=== PATIENT | female | born 1985 | race Caucasian/White ===

== ENCOUNTER 2017-09-05 21:35 | Emergency (ER) | payer BC, OTHER ==
[2017-09-05 21:45] VITALS: BP 119/58
--- NOTE | 2017-09-05 22:17 | EDM.PDOC ---
ED HPI GENERAL MEDICAL PROBLEM - General Chief Complaint: Respiratory Problem Stated Complaint: SOB COUGH CONGESTION Time Seen by Provider: 09/05/17 22:00 Source of Information: Reports: Patient History Limitations: Reports: No Limitations - History of Present Illness INITIAL COMMENTS - FREE TEXT/NARRATIVE: 32-year-old female presents for evaluation treatment of cough, lightheadedness and shortness of breath. Patient reports that her symptoms started today. She reports chest discomfort and states she feels like she is having a hard time breathing. She reports it hurts to cough or take a deep breath. She states that she has a nonproductive cough. States she has felt warm and had chills but no known fever. She reports associated symptoms of headaches, lightheadedness and nausea. No syncope or vomiting. Patient reports that she has not slept much today and feels this could be part of her symptoms. She reports that in April she had pneumonia and her symptoms currently feels similar. Patient denies any recent travel. She denies any pain in her legs. Patient reports that she does have a Mirena IUD in place. Onset: Today Location: Reports: Chest Headache Pain Score (Numeric/FACES): 5 - Related Data Allergies Allergy/AdvReac Type Severity Reaction Status Date / Time No Known Allergies Allergy Verified 09/05/17 21:45 Home Meds: Home Meds Levothyroxine [Synthroid] 100 mcg PO DAILY 12/23/14 [History] Sertraline [Zoloft] 100 mg PO DAILY 11/18/16 [History] Levonorgestrel [Mirena] 1 each IY ASDIRECTED 09/05/17 [History] Past Medical History HEENT History: Reports: Impaired Vision Other HEENT History: wears corrective lenses Genitourinary History: Reports: Renal Calculus, UTI, Recurrent Other OB/BYN History: 3 miscarriages; cysts Psychiatric History: Reports: Anxiety, Depression Endocrine/Metabolic History: Reports: Hypothyroidism - Past Surgical History HEENT Surgical History: Reports: Eye Surgery GI Surgical History: Reports: Cholecystectomy Female Surgical History: Reports: D&C Musculoskeletal Surgical History: Reports: Ganglion Cyst Social & Family History - Tobacco Use Smoking Status *Q: Never Smoker Second Hand Smoke Exposure: No - Caffeine Use Caffeine Use: Reports: Soda - Alcohol Use Days Per Week of Alcohol Use: 0 - Recreational Drug Use Recreational Drug Use: No - Living Situation & Occupation Living situation: Reports: , with Spouse Occupation: Employed ED ROS GENERAL - Review of Systems Review Of Systems: See Below Constitutional: Reports: Chills, Fatigue. Denies: Fever HEENT: Reports: Throat Pain. Denies: Ear Pain Respiratory: Reports: Shortness of Breath, Pleuritic Chest Pain, Cough. Denies : Sputum, Hemoptysis Cardiovascular: Reports: Chest Pain, Lightheadedness GI/Abdominal: Reports: Nausea. Denies: Vomiting Musculoskeletal: Denies: Leg Pain Neurological: Reports: Headache. Denies: Syncope ED EXAM, GENERAL - Physical Exam Exam: See Below Exam Limited By: No Limitations General Appearance: Alert, WD/WN, No Apparent Distress Eye Exam: Bilateral Eye: Normal Inspection Ears: Normal External Exam, Normal Canal, Hearing Grossly Normal, Normal TMs Ear Exam: Bilateral Ear: TM normal Nose: Normal Inspection Throat/Mouth: Normal Inspection, Normal Lips, Normal Voice, No Airway Compromise Respiratory/Chest: No Respiratory Distress, Lungs Clear, Normal Breath Sounds Cardiovascular: Normal Peripheral Pulses, Regular Rate, Rhythm, No Murmur Neurological: Alert, Oriented, Normal Cognition Psychiatric: Normal Affect, Normal Mood Skin Exam: Warm, Dry, Normal Color Course - Vital Signs Last Recorded V/S: Last Vital Signs Temp 36.2 C 09/05/17 21:42 Pulse 68 09/05/17 21:42 Resp 18 09/05/17 21:42 BP 119/58 L 09/05/17 21:42 Pulse Ox 96 09/05/17 21:42 - Orders/Labs/Meds Orders: Active Orders 24 hr Category Date Time Status Chest 2V [CR] Stat Exams 09/05/17 22:08 Ordered Labs: Laboratory Tests 09/05/17 09/05/17 09/05/17 Range/Units 22:20 22:20 22:20 WBC 10.66 H (3.98-10.04) K/mm3 RBC 4.41 (3.98-5.22) M/mm3 Hgb 13.9 (11.2-15.7) gm/L Hct 39.7 (34.1-44.9) % MCV 90.0 (79.4-94.8) fl MCH 31.5 (25.6-32.2) pg MCHC 35.0 (32.2-35.5) g/dl RDW Std Deviation 40.9 (36.4-46.3) fL Plt Count 174 L (182-369) K/mm3 MPV 11.5 (9.4-12.3) fl Neut % (Auto) 51.1 (34.0-71.1) % Lymph % (Auto) 36.2 (19.3-51.7) % [place] % (Auto) 9.8 (4.7-12.5) % Eos % (Auto) 1.9 (0.7-5.8) Baso % (Auto) 0.7 (0.1-1.2) % Neut # (Auto) 5.46 (1.56-6.13) K/mm3 Lymph # (Auto) 3.86 H (1.18-3.74) K/mm3 [place] # (Auto) 1.04 H (0.24-0.36) K/mm3 Eos # (Auto) 0.20 (0.04-0.36) K/mm3 Baso # (Auto) 0.07 (0.01-0.08) K/mm3 D-Dimer, Quantitative 0.29 (0.19-0.59) mg/L Sodium 142 (136-145) mEq/L Potassium 3.2 L (3.5-5.1) mEq/L Chloride 106 (98-107) mEq/L Carbon Dioxide 26 (21-32) mEq/L Anion Gap 13.2 (5-15) BUN 11 (7-18) mg/dL Creatinine 0.9 (0.55-1.02) mg/dL Est Cr Clr Drug Dosing 71.63 mL/min Estimated GFR (MDRD) > 60 (>60) mL/min BUN/Creatinine Ratio 12.2 L (14-18) Glucose 122 H (74-106) mg/dL Calcium 9.3 (8.5-10.1) mg/dL C-Reactive Protein < 0.2 (<1.0) mg/dL - Radiology Interpretation Free Text/Narrative:: chest xray shows no acute intrathoracic process. Reviewed by myself and Dr. Villalobos. - Re-Assessments/Exams Free Text/Narrative Re-Assessment/Exam: 09/05/17 22:59 Influenza returned negative. I reviewed the chest x-ray and labs at the patient. Likely a viral infection coupled with not eating or sleeping today causing lightheadedness and dizziness. Encouraged to rest and drink plenty of fluids. Discharge instructions as documented. Departure - Departure Time of Disposition: 22:59 Disposition: Home, Self-Care 01 Condition: Good Clinical Impression: Viral upper respiratory illness - Discharge Information Referrals: PCP,None [Primary Care Provider] - Ada Mueller PA-C [Ordering Only Provider] - Forms: ED Department Discharge Additional Instructions: Rest. make sure you drink plenty of fluids. [id number] Tylenol or Motrin as needed for headache and symptom relief. If your symptoms are not much better within 2 weeks follow-up with your primary care provider. Recommend increasing your potassium by eating food high in potassium or starting a multivitamin with potassium. Please return to the ER if your symptoms change or worsen. - My Orders Last 24 Hours: My Active Orders 09/05/17 22:08 Chest 2V [CR] Stat - Assessment/Plan Last 24 Hours: My Active Orders 09/05/17 22:08 Chest 2V [CR] Stat
--- NOTE | 2017-09-06 07:10 | CR ---
Chest: Two views of the chest were obtained. Comparison: No previous chest x-ray. Heart size and mediastinum are within normal limits. Lungs are clear. Surgical clips are noted within the upper abdomen. Bony structures are within normal limits for the patient's age. Impression: 1. Incidental findings. Nothing acute is seen on two-view chest x-ray. Diagnostic code #1
== END 2017-09-05 23:05 | disposition home or self-care (01) ==
LOC: JD.ED 21:35
DX: J06.9 Acute upper respiratory infection, unspecified (principal); F32.9 Major depressive disorder, single episode, unspecified; E03.9 Hypothyroidism, unspecified; Z79.899 Other long term (current) drug therapy
CPT/HCPCS: 36415; 71020; 71020-26; 80048; 85025; 85379; 86140; 87804; 99283; 99284

== ENCOUNTER 2017-10-11 23:25 | Emergency (ER) | payer OTHER ==
[2017-10-11 23:43] VITALS: BP 116/67
[2017-10-11] MEDS ORDERED: Ondansetron 4 MG/2 ML SDV IVPUSH ONE (23:54)
[2017-10-11] MEDS ORDERED: Sodium Chloride 0.9% 1,000 ML IV STA (23:54)
[2017-10-11] MEDS ORDERED: Sodium Chloride 0.9% 10 ML Syringe FLUSH PRN (23:54)
--- NOTE | 2017-10-12 00:29 | EDM.PDOC ---
ED HPI GENERAL MEDICAL PROBLEM - General Chief Complaint: General Stated Complaint: DIZZY/NAUSEATED Time Seen by Provider: 10/11/17 23:48 Source of Information: Reports: Patient History Limitations: Reports: No Limitations - History of Present Illness INITIAL COMMENTS - FREE TEXT/NARRATIVE: The patient presents with generalized malaise, nausea and not feeling well. This started yesterday. She may have had a fever and she has chills. She has no ear pain, sorethroat, cough, chest pain, shortness of breath or abdominal pain. She does have nausea but no vomiting. She has no dysuria. She did have some mild left flank pain. She has a history of kidney stones. She has a history of hypothyroidism. Onset: Gradual Duration: Day(s): (Yesterday) Severity: Moderate Improves with: Reports: None Worsens with: Reports: None Associated Symptoms: Reports: Fever/Chills, Nausea/Vomiting. Denies: Chest Pain , Cough, Headaches, Shortness of Breath Headache Pain Score (Numeric/FACES): 5 - Related Data Allergies Allergy/AdvReac Type Severity Reaction Status Date / Time No Known Allergies Allergy Verified 09/05/17 21:45 Home Meds: Home Meds Levothyroxine [Synthroid] 100 mcg PO DAILY 12/23/14 [History] Sertraline [Zoloft] 100 mg PO DAILY 11/18/16 [History] Levonorgestrel [Mirena] 1 each IY ASDIRECTED 09/05/17 [History] Past Medical History HEENT History: Reports: Impaired Vision Other HEENT History: wears corrective lenses Genitourinary History: Reports: Renal Calculus, UTI, Recurrent Other OB/BYN History: 3 miscarriages; cysts Psychiatric History: Reports: Anxiety, Depression Endocrine/Metabolic History: Reports: Hypothyroidism - Past Surgical History HEENT Surgical History: Reports: Eye Surgery GI Surgical History: Reports: Cholecystectomy Female Surgical History: Reports: D&C Musculoskeletal Surgical History: Reports: Ganglion Cyst Social & Family History - Family History Family Medical History: Noncontributory - Tobacco Use Smoking Status *Q: Never Smoker Second Hand Smoke Exposure: No - Caffeine Use Caffeine Use: Reports: Soda - Alcohol Use Days Per Week of Alcohol Use: 0 - Recreational Drug Use Recreational Drug Use: No - Living Situation & Occupation Living situation: Reports: , with Spouse Occupation: Employed ED ROS GENERAL - Review of Systems Review Of Systems: See Below Constitutional: Reports: Fever, Chills, Malaise, Weakness, Fatigue HEENT: Reports: No Symptoms Respiratory: Reports: No Symptoms Cardiovascular: Reports: No Symptoms Endocrine: Reports: No Symptoms GI/Abdominal: Reports: Nausea. Denies: Abdominal Pain, Diarrhea, Vomiting : Reports: No Symptoms Musculoskeletal: Reports: No Symptoms ED EXAM, GENERAL - Physical Exam Exam: See Below Exam Limited By: No Limitations General Appearance: Alert, No Apparent Distress Ears: Normal External Exam, Normal Canal, Normal TMs Nose: Normal Inspection Throat/Mouth: Normal Inspection Head: Atraumatic, Normocephalic Neck: Normal Inspection Respiratory/Chest: No Respiratory Distress, Lungs Clear, Normal Breath Sounds Cardiovascular: Regular Rate, Rhythm, No Edema, No Murmur GI/Abdominal: Soft, Non-Tender, No Organomegaly, No Mass Back Exam: Normal Inspection Extremities: Normal Inspection Course - Vital Signs Last Recorded V/S: Last Vital Signs Temp 98.2 F 10/11/17 23:40 Pulse 64 10/11/17 23:40 Resp 16 10/11/17 23:40 BP 116/67 10/11/17 23:40 Pulse Ox 96 10/11/17 23:40 - Orders/Labs/Meds Orders: Active Orders 24 hr Category Date Time Status Peripheral IV Care [RC] . DIRECTED Care 10/11/17 23:55 Active Sodium Chloride 0.9% [Saline Flush] Med 10/11/17 23:54 Active 10 ml FLUSH ASDIRECTED PRN ED Antiemetic Medication Reflex [OM.PC] Stat Oth 10/11/17 23:55 Ordered Peripheral IV Insertion Adult [OM.PC] Stat Oth 10/11/17 23:54 Ordered Medication Orders Sodium Chloride (Saline Flush) 10 ml FLUSH ASDIRECTED PRN PRN Reason: Keep Vein Open Last Admin: 10/12/17 00:26 Dose: 10 ml Labs: Laboratory Tests 10/12/17 10/12/17 10/12/17 Range/Units 00:18 00:20 00:20 WBC 12.89 H (3.98-10.04) K/mm3 RBC 4.74 (3.98-5.22) M/mm3 Hgb 14.7 (11.2-15.7) gm/L Hct 43.3 (34.1-44.9) % MCV 91.4 (79.4-94.8) fl MCH 31.0 (25.6-32.2) pg MCHC 33.9 (32.2-35.5) g/dl RDW Std Deviation 42.2 (36.4-46.3) fL Plt Count 156 L (182-369) K/mm3 MPV 11.5 (9.4-12.3) fl Neut % (Auto) 55.1 (34.0-71.1) % Lymph % (Auto) 34.1 (19.3-51.7) % [place] % (Auto) 8.3 (4.7-12.5) % Eos % (Auto) 1.7 (0.7-5.8) Baso % (Auto) 0.6 (0.1-1.2) % Neut # (Auto) 7.10 H (1.56-6.13) K/mm3 Lymph # (Auto) 4.39 H (1.18-3.74) K/mm3 [place] # (Auto) 1.07 H (0.24-0.36) K/mm3 Eos # (Auto) 0.22 (0.04-0.36) K/mm3 Baso # (Auto) 0.08 (0.01-0.08) K/mm3 Sodium 143 (136-145) mEq/L Potassium 3.3 L (3.5-5.1) mEq/L Chloride 105 (98-107) mEq/L Carbon Dioxide 28 (21-32) mEq/L Anion Gap 13.3 (5-15) BUN 17 (7-18) mg/dL Creatinine 0.8 (0.55-1.02) mg/dL Est Cr Clr Drug Dosing 80.59 mL/min Estimated GFR (MDRD) > 60 (>60) mL/min BUN/Creatinine Ratio 21.3 H (14-18) Glucose 124 H (74-106) mg/dL Calcium 8.7 (8.5-10.1) mg/dL Total Bilirubin 0.5 (0.2-1.0) mg/dL AST 12 L (15-37) U/L ALT 25 (14-59) U/L Alkaline Phosphatase 94 (46-116) U/L Total Protein 7.3 (6.4-8.2) g/dl Albumin 3.9 (3.4-5.0) g/dl Globulin 3.4 gm/dL Albumin/Globulin Ratio 1.2 (1-2) Lipase 330 (73-393) U/L TSH 3rd Generation 1.261 (0.358-3.74) uIU/mL HCG, Qual (NEGATIVE) Urine Color Yellow (Yellow) Urine Appearance Clear (Clear) Urine pH 7.0 (5.0-8.0) Ur Specific [place] 1.020 (1.005-1.030) Urine Protein Negative (Negative) Urine Glucose (UA) Negative (Negative) Urine Ketones Negative (Negative) Urine Occult Blood Negative (Negative) Urine Nitrite Negative (Negative) Urine Bilirubin Negative (Negative) Urine Urobilinogen 0.2 (0.2-1.0) Ur Leukocyte Esterase Negative (Negative) Urine RBC Not seen (0-5) /hpf Urine WBC 0-5 (0-5) /hpf Ur Epithelial Cells 0-5 (0-5) /hpf Urine Bacteria Not seen (FEW) /hpf Urine Mucus Not seen (FEW) /hpf 10/12/17 Range/Units 00:20 WBC (3.98-10.04) K/mm3 RBC (3.98-5.22) M/mm3 Hgb (11.2-15.7) gm/L Hct (34.1-44.9) % MCV (79.4-94.8) fl MCH (25.6-32.2) pg MCHC (32.2-35.5) g/dl RDW Std Deviation (36.4-46.3) fL Plt Count (182-369) K/mm3 MPV (9.4-12.3) fl Neut % (Auto) (34.0-71.1) % Lymph % (Auto) (19.3-51.7) % [place] % (Auto) (4.7-12.5) % Eos % (Auto) (0.7-5.8) Baso % (Auto) (0.1-1.2) % Neut # (Auto) (1.56-6.13) K/mm3 Lymph # (Auto) (1.18-3.74) K/mm3 [place] # (Auto) (0.24-0.36) K/mm3 Eos # (Auto) (0.04-0.36) K/mm3 Baso # (Auto) (0.01-0.08) K/mm3 Sodium (136-145) mEq/L Potassium (3.5-5.1) mEq/L Chloride (98-107) mEq/L Carbon Dioxide (21-32) mEq/L Anion Gap (5-15) BUN (7-18) mg/dL Creatinine (0.55-1.02) mg/dL Est Cr Clr Drug Dosing mL/min Estimated GFR (MDRD) (>60) mL/min BUN/Creatinine Ratio (14-18) Glucose (74-106) mg/dL Calcium (8.5-10.1) mg/dL Total Bilirubin (0.2-1.0) mg/dL AST (15-37) U/L ALT (14-59) U/L Alkaline Phosphatase (46-116) U/L Total Protein (6.4-8.2) g/dl Albumin (3.4-5.0) g/dl Globulin gm/dL Albumin/Globulin Ratio (1-2) Lipase (73-393) U/L TSH 3rd Generation (0.358-3.74) uIU/mL HCG, Qual Negative (NEGATIVE) Urine Color (Yellow) Urine Appearance (Clear) Urine pH (5.0-8.0) Ur Specific [place] (1.005-1.030) Urine Protein (Negative) Urine Glucose (UA) (Negative) Urine Ketones (Negative) Urine Occult Blood (Negative) Urine Nitrite (Negative) Urine Bilirubin (Negative) Urine Urobilinogen (0.2-1.0) Ur Leukocyte Esterase (Negative) Urine RBC (0-5) /hpf Urine WBC (0-5) /hpf Ur Epithelial Cells (0-5) /hpf Urine Bacteria (FEW) /hpf Urine Mucus (FEW) /hpf Meds: Medications Generic Name Dose Route Start Last Admin Trade Name Freq PRN Reason Stop Dose Admin Sodium Chloride 10 ml 10/11/17 23:54 10/12/17 00:26 Saline Flush FLUSH 10 ml ASDIRECTED PRN Administration Keep Vein Open Discontinued Medications Generic Name Dose Route Start Last Admin Trade Name Freq PRN Reason Stop Dose Admin Acetaminophen 975 mg 10/12/17 01:43 10/12/17 01:47 Tylenol PO 10/12/17 01:44 975 mg NOW ONE Administration Sodium Chloride 1,000 mls @ 1,000 mls/hr 10/11/17 23:54 10/12/17 00:23 Normal Saline IV 10/12/17 00:53 1,000 mls/hr .BOLUS STA Administration Ondansetron HCl 4 mg 10/11/17 23:54 10/12/17 00:23 Zofran IVPUSH 10/11/17 23:55 4 mg ONETIME ONE Administration - Re-Assessments/Exams Free Text/Narrative Re-Assessment/Exam: 10/12/17 00:28 I ordered an IV NS 1L bolus, zofran 4mg IV, labs, and UA. 10/12/17 01:55 Her WBC was elevated at 12.89. Her K was a little low at 3.3. Her glucose was elevated at 124. Her HCG was negative. Her UA shows no UTI. She had a headache so I gave her some tylenol 975mg PO. She has a viral URI. I will discharge her home. Departure - Departure Time of Disposition: 02:00 Disposition: Home, Self-Care 01 Condition: Good Clinical Impression: Viral syndrome - Discharge Information Referrals: Lolita Hayden MD [Primary Care Provider] - Forms: ED Department Discharge, ED Return to Work/School Form Additional Instructions: Drink plenty of water. Take motrin or tylenol for any pain or fever. Get plenty of rest. Please return if you are worse. - My Orders Last 24 Hours: My Active Orders 10/11/17 23:54 Sodium Chloride 0.9% [Saline Flush] 10 ml FLUSH ASDIRECTED PRN Peripheral IV Insertion Adult [OM.PC] Stat 10/11/17 23:55 Peripheral IV Care [RC] . DIRECTED ED Antiemetic Medication Reflex [OM.PC] Stat - Assessment/Plan Last 24 Hours: My Active Orders 10/11/17 23:54 Sodium Chloride 0.9% [Saline Flush] 10 ml FLUSH ASDIRECTED PRN Peripheral IV Insertion Adult [OM.PC] Stat 10/11/17 23:55 Peripheral IV Care [RC] . DIRECTED ED Antiemetic Medication Reflex [OM.PC] Stat
[2017-10-12] MEDS ORDERED: Acetaminophen 325 MG Tab PO ONE (01:43)
== END 2017-10-12 02:07 | disposition home or self-care (01) ==
LOC: JD.ED 23:25
DX: B34.9 Viral infection, unspecified (principal); F32.9 Major depressive disorder, single episode, unspecified; E03.9 Hypothyroidism, unspecified; Z79.899 Other long term (current) drug therapy
CPT/HCPCS: 36415; 80053; 81001; 83690; 84443; 84703; 85025; 87804; 96361; 96374; 99284; A9270; J2405; J7040; J7050; 99282

== ENCOUNTER 2017-11-01 17:18 | Emergency (ER) | payer OTHER ==
[2017-11-01] MEDS ORDERED: Ondansetron 4 MG/2 ML SDV IVPUSH ONE (18:42)
[2017-11-01] MEDS ORDERED: Sodium Chloride 0.9% 10 ML Syringe FLUSH PRN (18:42)
[2017-11-01] MEDS ORDERED: Sodium Chloride 0.9% 1,000 ML IV ONE (18:42)
[2017-11-01] MEDS ORDERED: HYDROmorphone 0.5 MG/0.5 ML Syringe IVPUSH ONE (18:43)
--- NOTE | 2017-11-01 18:46 | EDM.PDOC ---
ED HPI GENERAL MEDICAL PROBLEM - General Chief Complaint: Headache Stated Complaint: HEADACHE,DIZZINESS,BODY WEAKNESS Time Seen by Provider: 11/01/17 18:36 Source of Information: Reports: Patient History Limitations: Reports: No Limitations - History of Present Illness INITIAL COMMENTS - FREE TEXT/NARRATIVE: Patient is a 32-year-old female who presents to the ED complaining of headache, body aches, hot and cold flashes, cough nonproductive, nausea, generalized weakness, body aches, and mild dizziness that all started last night. She's also has some intermittent shortness of breath with sore throat. No fevers noted with admission to the ED was 100.4. Their as been no recent sick exposures. She denies receiving the flu vaccination. Denies no diarrhea, vomiting, or rash present. She has a history of hypothyroidism and denies being . Generalized Pain Score (Numeric/FACES): 8 - Related Data Allergies Allergy/AdvReac Type Severity Reaction Status Date / Time No Known Allergies Allergy Verified 11/01/17 17:42 Home Meds: Home Meds Levothyroxine [Synthroid] 100 mcg PO DAILY 12/23/14 [History] Levonorgestrel [Mirena] 1 each IY ASDIRECTED 09/05/17 [History] Ondansetron [Zofran ODT] 4 mg PO Q6H PRN #20 tab.dis 11/01/17 [Rx] Past Medical History HEENT History: Reports: Impaired Vision Other HEENT History: wears corrective lenses Genitourinary History: Reports: Renal Calculus, UTI, Recurrent Other OB/BYN History: 3 miscarriages; cysts Psychiatric History: Reports: Anxiety, Depression Endocrine/Metabolic History: Reports: Hypothyroidism - Past Surgical History HEENT Surgical History: Reports: Eye Surgery GI Surgical History: Reports: Cholecystectomy Female Surgical History: Reports: D&C Musculoskeletal Surgical History: Reports: Ganglion Cyst Social & Family History - Family History Family Medical History: Noncontributory - Tobacco Use Smoking Status *Q: Never Smoker Second Hand Smoke Exposure: No - Caffeine Use Caffeine Use: Reports: None - Alcohol Use Days Per Week of Alcohol Use: 0 - Recreational Drug Use Recreational Drug Use: No - Living Situation & Occupation Living situation: Reports: , with Spouse Occupation: Employed ED ROS GENERAL - Review of Systems Review Of Systems: ROS reveals no pertinent complaints other than HPI. ED EXAM, GENERAL - Physical Exam Exam: See Below Exam Limited By: No Limitations General Appearance: Alert, WD/WN, Mild Distress Ears: Normal External Exam, Normal Canal, Hearing Grossly Normal, Normal TMs Nose: Nasal Swelling Throat/Mouth: Normal Inspection, No Airway Compromise, Other Neck: Normal Inspection (Forcefulness with redness noted to the posterior pharynx no exudates noted.), Supple, Non-Tender, Full Range of Motion Respiratory/Chest: No Respiratory Distress, Lungs Clear, Normal Breath Sounds, No Accessory Muscle Use, Chest Non-Tender Cardiovascular: Normal Peripheral Pulses, Regular Rate, Rhythm GI/Abdominal: Normal Bowel Sounds, Soft, Non-Tender, No Organomegaly, No Distention Back Exam: Normal Inspection, Full Range of Motion. No: CVA Tenderness (L), CVA Tenderness (R) Neurological: Alert, Oriented, CN II-XII Intact, Normal Cognition, No Motor/ Sensory Deficits Psychiatric: Normal Affect, Normal Mood Skin Exam: Warm, Dry, Intact, Normal Color Course - Vital Signs Last Recorded V/S: Last Vital Signs Temp 99.8 F 11/01/17 19:10 Pulse 101 H 11/01/17 19:10 Resp 18 11/01/17 19:10 BP 113/68 11/01/17 19:10 Pulse Ox 87 L 11/01/17 19:18 Orthostatic Blood Pressure [ 112/74 Standing] Orthostatic Blood Pressure [ 119/75 Sitting] Orthostatic Blood Pressure [ 109/65 Supine] - Orders/Labs/Meds Orders: Active Orders 24 hr Category Date Time Status Peripheral IV Care [RC] . DIRECTED Care 11/01/17 18:42 Active Chest 2V [CR] Stat Exams 11/01/17 18:42 Taken CULTURE STREP A CONFIRMATION [RM] Stat Lab 11/01/17 19:00 Results STREP SCRN A RAPID W CULT CONF [RM] Stat Lab 11/01/17 19:00 Results UA W/MICROSCOPIC [URIN] Stat Lab 11/01/17 19:58 Results Peripheral IV Insertion Adult [OM.PC] Stat Oth 11/01/17 18:42 Ordered Labs: Laboratory Tests 11/01/17 11/01/17 11/01/17 Range/Units 19:00 19:00 19:58 WBC 10.95 H (3.98-10.04) K/mm3 RBC 4.67 (3.98-5.22) M/mm3 Hgb 14.7 (11.2-15.7) gm/L Hct 43.2 (34.1-44.9) % MCV 92.5 (79.4-94.8) fl MCH 31.5 (25.6-32.2) pg MCHC 34.0 (32.2-35.5) g/dl RDW Std Deviation 43.6 (36.4-46.3) fL Plt Count 134 L (182-369) K/mm3 MPV 11.6 (9.4-12.3) fl Neut % (Auto) 79.7 H (34.0-71.1) % Lymph % (Auto) 7.1 L (19.3-51.7) % [place] % (Auto) 12.4 (4.7-12.5) % Eos % (Auto) 0.1 L (0.7-5.8) Baso % (Auto) 0.4 (0.1-1.2) % Neut # (Auto) 8.73 H (1.56-6.13) K/mm3 Lymph # (Auto) 0.78 L (1.18-3.74) K/mm3 [place] # (Auto) 1.36 H (0.24-0.36) K/mm3 Eos # (Auto) 0.01 L (0.04-0.36) K/mm3 Baso # (Auto) 0.04 (0.01-0.08) K/mm3 Manual Slide Review Normal smear Sodium 140 (136-145) mEq/L Potassium 3.6 (3.5-5.1) mEq/L Chloride 105 (98-107) mEq/L Carbon Dioxide 27 (21-32) mEq/L Anion Gap 11.6 (5-15) BUN 9 (7-18) mg/dL Creatinine 0.9 (0.55-1.02) mg/dL Est Cr Clr Drug Dosing 71.63 mL/min Estimated GFR (MDRD) > 60 (>60) mL/min BUN/Creatinine Ratio 10.0 L (14-18) Glucose 132 H (74-106) mg/dL Calcium 8.7 (8.5-10.1) mg/dL Total Bilirubin 0.8 (0.2-1.0) mg/dL AST 18 (15-37) U/L ALT 23 (14-59) U/L Alkaline Phosphatase 102 (46-116) U/L C-Reactive Protein 2.5 H* (<1.0) mg/dL Total Protein 7.7 (6.4-8.2) g/dl Albumin 4.2 (3.4-5.0) g/dl Globulin 3.5 gm/dL Albumin/Globulin Ratio 1.2 (1-2) Urine Color Yellow (Yellow) Urine Appearance Clear (Clear) Urine pH 6.0 (5.0-8.0) Ur Specific [place] > or = 1.030 (1.005-1.030) Urine Protein Negative (Negative) Urine Glucose (UA) Negative (Negative) Urine Ketones Trace H (Negative) Urine Occult Blood Negative (Negative) Urine Nitrite Negative (Negative) Urine Bilirubin Negative (Negative) Urine Urobilinogen 0.2 (0.2-1.0) Ur Leukocyte Esterase Trace H (Negative) Meds: Medications Discontinued Medications Generic Name Dose Route Start Last Admin Trade Name Freq PRN Reason Stop Dose Admin Hydromorphone HCl 0.5 mg 11/01/17 18:43 11/01/17 19:06 Dilaudid IVPUSH 11/01/17 18:44 0.5 mg ONETIME ONE Administration Sodium Chloride 1,000 mls @ 999 mls/hr 11/01/17 18:42 11/01/17 19:04 Normal Saline IV 11/01/17 19:42 999 mls/hr ONETIME ONE Administration Ondansetron HCl 4 mg 11/01/17 18:42 11/01/17 19:05 Zofran IVPUSH 11/01/17 18:43 4 mg ONETIME ONE Administration Sodium Chloride 10 ml 11/01/17 18:42 11/01/17 19:05 Saline Flush FLUSH 10 ml ASDIRECTED PRN Administration Keep Vein Open - Re-Assessments/Exams Free Text/Narrative Re-Assessment/Exam: IV established with normal saline 999 mls per hour, Dilaudid 0.5 mg IVP, and Zofran 4 mg IVP. Initial studies include CBC, chem 14, CRP, influenza A&B screen, strep screen, UA, and chest x-ray two-view. Labs reviewed: White blood cell count 10.95, neutrophil percent is 79.7, neutrophil number is 8.73, hemoglobin 14.7, sodium 140, potassium 3.6, creatinine 0.9, glucose 132, and CRP 2.2. HCG negative. Influenza screen positive for A. Strep screen negative. I discussed results of current labs and influenza screen with patient. Discussed starting the patient on Tamiflu to which she has refused. She is feeling better after receiving the IV fluids. Blood pressure normotensive. Heart rate has trended downward into the high 80s. She is ready to be discharged home. Patient took long time to provide a UA sample. UA is pending. Will discharge patient home with instructions as documented. She will be notified with results if positive for infection. Departure - Departure Time of Disposition: 21:40 Disposition: Home, Self-Care 01 Condition: Good Clinical Impression: Influenza A - Discharge Information Prescriptions: Ondansetron [Zofran ODT] 4 mg PO Q6H PRN #20 tab.dis PRN Reason: Nausea/Vomiting Instructions: Dehydration, Adult, [id number] Referrals: Lolita Hayden MD [Primary Care Provider] - Forms: ED Department Discharge Additional Instructions: As discussed CT of influenza A. Treatment at this point is symptomatic care including Tylenol 650 mg every 6 hours and ibuprofen 600 mg every 6 hours in alternating fashion for pain and fever. Push the fluids. Take Zofran as prescribed when necessary nausea/vomiting. Refrain from contact with any large groups, pediatrics, elderly, and/or immunocompromised. Refrain from going to work for the next 7 days. Symptoms should start to gradually improve on their own accord. Follow-up with her primary care provider in the next 7-10 days for reevaluation if symptoms are not improving. Return to the ED if you develop any new or worsening symptoms. - My Orders Last 24 Hours: My Active Orders 11/01/17 18:42 Peripheral IV Care [RC] . DIRECTED Chest 2V [CR] Stat Peripheral IV Insertion Adult [OM.PC] Stat 11/01/17 19:00 CULTURE STREP A CONFIRMATION [RM] Stat STREP SCRN A RAPID W CULT CONF [RM] Stat 11/01/17 19:58 UA W/MICROSCOPIC [URIN] Stat - Assessment/Plan Last 24 Hours: My Active Orders 11/01/17 18:42 Peripheral IV Care [RC] . DIRECTED Chest 2V [CR] Stat Peripheral IV Insertion Adult [OM.PC] Stat 11/01/17 19:00 CULTURE STREP A CONFIRMATION [RM] Stat STREP SCRN A RAPID W CULT CONF [RM] Stat 11/01/17 19:58 UA W/MICROSCOPIC [URIN] Stat
[2017-11-01 19:11] VITALS: BP 113/68
--- NOTE | 2017-11-02 09:06 | CR ---
Chest: Two views of the chest were obtained. Comparison: Prior chest x-ray of 09/05/17. Heart size and mediastinum are normal. Lungs appear clear without acute infiltrates. Bony structures are within normal limits for the patient's age. Evidence of prior cholecystectomy. Impression: 1. Nothing acute is appreciated on two-view chest x-ray. Diagnostic code #1
== END 2017-11-01 21:40 | disposition home or self-care (01) ==
LOC: JD.ED 17:18
DX: J10.1 Influenza due to other identified influenza virus with other respiratory manifestations (principal); F32.9 Major depressive disorder, single episode, unspecified; E03.9 Hypothyroidism, unspecified; Z79.899 Other long term (current) drug therapy
CPT/HCPCS: 36415; 71046; 80053; 81001; 85025; 86140; 87081; 87430; 87804; 96361; 96374; 96375; 99284; J1170; J2405; J7040; J7050; 99283

== ENCOUNTER 2017-12-20 22:04 | Emergency (ER) | payer OTHER ==
[2017-12-20 22:20] VITALS: BP 116/75
--- NOTE | 2017-12-20 23:23 | EDM.PDOC ---
ED HPI GENERAL MEDICAL PROBLEM - General Chief Complaint: WRIST CLOSER Problem Stated Complaint: ABDOMINAL PAIN Time Seen by Provider: 12/20/17 23:22 - History of Present Illness INITIAL COMMENTS - FREE TEXT/NARRATIVE: 32-year-old female presents emergency room with left-sided abdominal pain. Patient was seen in the clinic today started on Diflucan told her hCG was negative and is scheduled for pelvic ultrasound. She complains of left-sided flank pain that radiates down. She's had a history of kidney stones in the past. She denies any fevers or chills no burning or frequency with urination. She has an IUD in place. She's had some nausea with this no vomiting no diarrhea no constipation. At this time her pain is still there is manageable but was quite severe prior to coming in. Pelvic Pain Score (Numeric/FACES): 5 - Related Data Allergies Allergy/AdvReac Type Severity Reaction Status Date / Time No Known Allergies Allergy Verified 12/20/17 22:14 Home Meds: Home Meds Levothyroxine [Synthroid] 100 mcg PO DAILY 12/23/14 [History] Levonorgestrel [Mirena] 1 each IY ASDIRECTED 09/05/17 [History] Antidepressant? 12/20/17 [History] Past Medical History HEENT History: Reports: Impaired Vision Other HEENT History: wears corrective lenses Genitourinary History: Reports: Renal Calculus, UTI, Recurrent Other OB/BYN History: 3 miscarriages; cysts Psychiatric History: Reports: Anxiety, Depression Endocrine/Metabolic History: Reports: Hypothyroidism - Past Surgical History HEENT Surgical History: Reports: Eye Surgery GI Surgical History: Reports: Cholecystectomy Female Surgical History: Reports: D&C Musculoskeletal Surgical History: Reports: Ganglion Cyst Social & Family History - Family History Family Medical History: Noncontributory - Tobacco Use Smoking Status *Q: Never Smoker Second Hand Smoke Exposure: No - Caffeine Use Caffeine Use: Reports: None - Alcohol Use Days Per Week of Alcohol Use: 0 - Recreational Drug Use Recreational Drug Use: No - Living Situation & Occupation Living situation: Reports: , with Spouse Occupation: Employed ED ROS GENERAL - Review of Systems Review Of Systems: See Below Constitutional: Reports: No Symptoms HEENT: Reports: No Symptoms Respiratory: Reports: No Symptoms Cardiovascular: Reports: No Symptoms Endocrine: Reports: No Symptoms GI/Abdominal: Reports: Abdominal Pain : Reports: Flank Pain, Pain. Denies: Frequency, Hematuria, Urgency, Urinary Retention Musculoskeletal: Reports: No Symptoms Skin: Reports: No Symptoms Neurological: Reports: No Symptoms ED EXAM, RENAL/ - Physical Exam Exam: See Below Exam Limited By: No Limitations General Appearance: Alert, No Apparent Distress Head: Atraumatic, Normocephalic Neck: Normal Inspection, Supple, Non-Tender, Full Range of Motion Respiratory/Chest: No Respiratory Distress, Lungs Clear, Normal Breath Sounds Cardiovascular: Regular Rate, Rhythm, No Edema, No Murmur GI/Abdominal: Normal Bowel Sounds, Soft, Other (Left-sided discomfort mild aggravation with palpation no rigidity rebound or guarding noted) Back Exam: Normal Inspection, CVA Tenderness (L). No: CVA Tenderness (R) Extremities: Normal Inspection, No Pedal Edema Neurological: Alert, Oriented, Normal Cognition Course - Vital Signs Last Recorded V/S: Last Vital Signs Temp 36.2 C 12/20/17 22:16 Pulse 68 12/20/17 22:16 Resp 16 12/20/17 22:16 BP 116/75 12/20/17 22:16 Pulse Ox 98 12/20/17 22:16 - Orders/Labs/Meds Labs: Laboratory Tests 12/20/17 12/20/17 12/20/17 Range/Units 23:40 23:40 23:45 WBC 12.67 H (3.98-10.04) K/mm3 RBC 4.65 (3.98-5.22) M/mm3 Hgb 14.7 (11.2-15.7) gm/L Hct 42.6 (34.1-44.9) % MCV 91.6 (79.4-94.8) fl MCH 31.6 (25.6-32.2) pg MCHC 34.5 (32.2-35.5) g/dl RDW Std Deviation 43.0 (36.4-46.3) fL Plt Count 176 L (182-369) K/mm3 MPV 11.8 (9.4-12.3) fl Neutrophils % (Manual) 58 (40-60) % Band Neutrophils % 0 (0-10) % Lymphocytes % (Manual) 33 (20-40) % Atypical Lymphs % 1 % Monocytes % (Manual) 4 (2-10) % Eosinophils % (Manual) 2 (0.7-5.8) % Basophils % (Manual) 2 H (0.1-1.2) Platelet Estimate Adequate Plt Morphology Comment Normal RBC Morph Comment Normal Sodium (136-145) mEq/L Potassium (3.5-5.1) mEq/L Chloride (98-107) mEq/L Carbon Dioxide (21-32) mEq/L Anion Gap (5-15) BUN (7-18) mg/dL Creatinine (0.55-1.02) mg/dL Est Cr Clr Drug Dosing mL/min Estimated GFR (MDRD) (>60) mL/min BUN/Creatinine Ratio (14-18) Glucose (74-106) mg/dL Calcium (8.5-10.1) mg/dL Total Bilirubin (0.2-1.0) mg/dL AST (15-37) U/L ALT (14-59) U/L Alkaline Phosphatase (46-116) U/L Total Protein (6.4-8.2) g/dl Albumin (3.4-5.0) g/dl Globulin gm/dL Albumin/Globulin Ratio (1-2) Urine Color Yellow (Yellow) Urine Appearance Clear (Clear) Urine pH 6.0 (5.0-8.0) Ur Specific [place] > or = 1.030 (1.005-1.030) Urine Protein Trace H (Negative) Urine Glucose (UA) Negative (Negative) Urine Ketones Negative (Negative) Urine Occult Blood Negative (Negative) Urine Nitrite Negative (Negative) Urine Bilirubin Negative (Negative) Urine Urobilinogen 0.2 (0.2-1.0) Ur Leukocyte Esterase Negative (Negative) Urine RBC 0-5 (0-5) /hpf Urine WBC 5-10 H (0-5) /hpf Ur Epithelial Cells 5-10 H (0-5) /hpf Calcium Oxalate Crystal Rare H (NONE) Urine Bacteria Many H (FEW) /hpf Urine Mucus Few (FEW) /hpf Urine HCG, Qual Negative (NEGATIVE) 12/20/17 Range/Units 23:45 WBC (3.98-10.04) K/mm3 RBC (3.98-5.22) M/mm3 Hgb (11.2-15.7) gm/L Hct (34.1-44.9) % MCV (79.4-94.8) fl MCH (25.6-32.2) pg MCHC (32.2-35.5) g/dl RDW Std Deviation (36.4-46.3) fL Plt Count (182-369) K/mm3 MPV (9.4-12.3) fl Neutrophils % (Manual) (40-60) % Band Neutrophils % (0-10) % Lymphocytes % (Manual) (20-40) % Atypical Lymphs % % Monocytes % (Manual) (2-10) % Eosinophils % (Manual) (0.7-5.8) % Basophils % (Manual) (0.1-1.2) Platelet Estimate Plt Morphology Comment RBC Morph Comment Sodium 146 H (136-145) mEq/L Potassium 3.5 (3.5-5.1) mEq/L Chloride 106 (98-107) mEq/L Carbon Dioxide 29 (21-32) mEq/L Anion Gap 14.5 (5-15) BUN 11 (7-18) mg/dL Creatinine 0.9 (0.55-1.02) mg/dL Est Cr Clr Drug Dosing 71.63 mL/min Estimated GFR (MDRD) > 60 (>60) mL/min BUN/Creatinine Ratio 12.2 L (14-18) Glucose 113 H (74-106) mg/dL Calcium 8.5 (8.5-10.1) mg/dL Total Bilirubin 0.5 (0.2-1.0) mg/dL AST 13 L (15-37) U/L ALT 28 (14-59) U/L Alkaline Phosphatase 105 (46-116) U/L Total Protein 7.3 (6.4-8.2) g/dl Albumin 3.9 (3.4-5.0) g/dl Globulin 3.4 gm/dL Albumin/Globulin Ratio 1.2 (1-2) Urine Color (Yellow) Urine Appearance (Clear) Urine pH (5.0-8.0) Ur Specific [place] (1.005-1.030) Urine Protein (Negative) Urine Glucose (UA) (Negative) Urine Ketones (Negative) Urine Occult Blood (Negative) Urine Nitrite (Negative) Urine Bilirubin (Negative) Urine Urobilinogen (0.2-1.0) Ur Leukocyte Esterase (Negative) Urine RBC (0-5) /hpf Urine WBC (0-5) /hpf Ur Epithelial Cells (0-5) /hpf Calcium Oxalate Crystal (NONE) Urine Bacteria (FEW) /hpf Urine Mucus (FEW) /hpf Urine HCG, Qual (NEGATIVE) - Re-Assessments/Exams Free Text/Narrative Re-Assessment/Exam: 12/21/17 01:39 Labs nondiagnostic and reviewed her old CT she's had multiple stones within the renal pelvis of the left kidney in the past approximately 1 year ago with the worsening pain that she's had a wonders the causing this. Will follow through with a CT KUB urinalysis does not look infected. However she appears to have a contaminated specimen however leukocyte esterase and nitrates are negative hCG negative Her pain has subsided somewhat she does not want anything for pain at this time. Her pain was quite severe earlier much worse than it is been in the past. 12/21/17 03:22 CT KUB negative for stones within the ureter bladder she has previously seen stones within the renal pelvis. Departure - Departure Time of Disposition: 03:25 Disposition: Home, Self-Care 01 Clinical Impression: Abdominal pain of unknown cause - Discharge Information Instructions: Abdominal Pain, Adult, [id number] Referrals: Ada Mueller PA-C [Primary Care Provider] - Forms: ED Department Discharge, ED Return to Work/School Form Additional Instructions: Return to the emergency room with any questions problems worsening symptoms. Return in 12-24 hours not better sooner if getting worse Clear liquid diet for the next 12 hours and slowly advance as tolerated. You have been given [place] from the machine in the waiting room here at the hospital. Take one every 4-6 hours as needed for pain. Allow 12 hours after using this medication before driving or returning to work
--- NOTE | 2017-12-21 10:48 | CT ---
CT abdomen and pelvis Technique: Multiple axial sections were obtained from above the dome of the diaphragm inferiorly through the pubic symphysis. Intravenous and oral contrast was not utilized. Study has been performed as a ureteral stone protocol. Comparison: Prior CT abdomen and pelvis exam of 11/18/16. Findings: Two small nonobstructing calculi are seen within the left kidney. Largest calculus measures approximately 3.8 mm in size. Right kidney shows no abnormal calcifications. No ureteral dilatation or ureteral stone is seen. Visualized lung bases show nothing acute. Liver shows no focal parenchymal abnormality. Spleen appears within normal limits. Adrenal glands show no nodule. Pancreas is within normal limits. Surgical clips are seen from prior cholecystectomy. Aorta shows no aneurysmal dilatation. No retroperitoneal adenopathy or mesenteric abnormalities are seen. No pelvic mass or adenopathy is seen. IUD is present within the uterus. Appendix is felt to be visualized and appears normal. No bowel dilatation is seen. No free fluid or inflammatory change is seen. Bone window settings were reviewed which appear within normal limits for the patient's age. Impression: 1. Two nonobstructing calculi within the left kidney. No ureteral dilatation or ureteral stone is seen. 2. Incidental note of IUD. 3. Nothing acute is identified on CT study of the abdomen and pelvis performed as a ureteral stone protocol. Diagnostic code #2 Agree with preliminary report issued by [employer] (12/21/17, 3:37 AM Central Time)
== END 2017-12-21 03:38 | disposition home or self-care (01) ==
LOC: JD.ED 22:04
DX: R10.2 Pelvic and perineal pain (principal); F41.9 Anxiety disorder, unspecified; Z79.899 Other long term (current) drug therapy; Z97.5 Presence of (intrauterine) contraceptive device; Z87.440 Personal history of urinary (tract) infections; Z90.49 Acquired absence of other specified parts of digestive tract; F32.9 Major depressive disorder, single episode, unspecified; E03.9 Hypothyroidism, unspecified
CPT/HCPCS: 36415; 74176; 74176-26; 80053; 81001; 81025; 85025; 99283; 99284-25

== ENCOUNTER 2018-04-22 21:39 | Emergency (ER) | payer OTHER ==
[2018-04-22 22:07] VITALS: BP 135/79
[2018-04-22] MEDS ORDERED: Haloperidol Lactate 5 MG/ML SDV IM ONE (23:06)
[2018-04-22] MEDS ORDERED: Benztropine 1 MG Tab PO STA (23:06)
[2018-04-22] MEDS ORDERED: Ondansetron 4 MG/2 ML SDV IVPUSH ONE (23:06)
[2018-04-22] MEDS ORDERED: Sodium Chloride 0.9% 1,000 ML IV ONE (23:06)
--- NOTE | 2018-04-22 23:09 | EDM.PDOC ---
ED HPI GENERAL MEDICAL PROBLEM - General Chief Complaint: Headache Stated Complaint: MIGRAINE/PAIN ON LEFT SIDE Time Seen by Provider: 04/22/18 22:50 Source of Information: Reports: Patient History Limitations: Reports: No Limitations - History of Present Illness INITIAL COMMENTS - FREE TEXT/NARRATIVE: The patient states that she has been experiencing a frontal headache, sharp in character, since last 04/15/2018. It is not modifiable. Tylenol has not helped. She has had nausea and emesis. She reports photophobia, but no phonophobia. No visual changes. She reports tingling and numbness to the lateral aspect of her right upper extremity, but no weakness. No prior similar symptoms. No prior imaging studies of her head. The patient also reports watery diarrhea all week, although her bowel movement was normal today. The patient also reports left rib pain. She states that she was seen by her PCP, Ada Mueller, earlier today, and was diagnosed with a UTI. Her symptoms included decreased urine output, but no dysuria, urgency, or frequency. She was started on oral Bactrim - she has taken one dose thus far. No recent cough or fever. 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), Other (See Below) (Ovarian cysts) Psychiatric History: Reports: Anxiety, Depression Endocrine/Metabolic History: Reports: Hypothyroidism - Past Surgical History HEENT Surgical History: Reports: Eye Surgery (Bilateral strabismus correction) GI Surgical History: Reports: Cholecystectomy Female Surgical History: Reports: D&C (x 1) Musculoskeletal Surgical History: Reports: Ganglion Cyst (left wrist) Social & Family History - Family History Family Medical History: Noncontributory - Tobacco Use Smoking Status *Q: Never Smoker - Caffeine Use Caffeine Use: Reports: Soda - Alcohol Use Alcohol Use History: No - Recreational Drug Use Recreational Drug Use: No - Living Situation & Occupation Living situation: Reports: , with Spouse 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 - Physical Exam Exam: See Below Exam Limited By: No Limitations General Appearance: Alert, WD/WN, No Apparent Distress Eye Exam: Bilateral Eye: EOMI, Normal Inspection, PERRL Ears: Normal External Exam, Hearing Grossly Normal Nose: Normal Inspection, No Blood Throat/Mouth: Normal Inspection, Normal Lips, Normal Voice, No Airway Compromise Head Exam: Atraumatic, Normocephalic Neck: Normal Inspection, Full Range of Motion Respiratory/Chest: No Respiratory Distress, Lungs Clear, Normal Breath Sounds, No Accessory Muscle Use Cardiovascular: Normal Peripheral Pulses, Regular Rate, Rhythm, No Edema, No Gallop, No JVD, No Murmur, No Rub GI/Abdominal: Normal Bowel Sounds, Soft, Non-Tender, No Organomegaly, No Distention, No Abnormal Bruit, No Mass (Female) Exam: Deferred Rectal (Female) Exam: Deferred Neuro Exam (Abbreviated): Alert, Oriented, CN II-XII Intact, Normal Cognition, Other (The patient reports decreased sensation to the lateral aspect of her right upper extremity, but no weakness is noted) Back Exam: Normal Inspection, Full Range of Motion, NT Extremities: Normal Inspection, Normal Range of Motion, No Pedal Edema, Normal Capillary Refill Psychiatric: Normal Affect Skin Exam: Warm, Dry, Intact, Normal Color, No Rash Course - Vital Signs Last Recorded V/S: Last Vital Signs Temp 37.0 C 04/22/18 22:01 Pulse 99 04/22/18 22:01 Resp 18 04/22/18 22:01 BP 135/79 04/22/18 22:01 Pulse Ox 100 04/22/18 22:01 Orthostatic Blood Pressure [ 86/49 Standing] Orthostatic Blood Pressure [ 98/85 Sitting] Orthostatic Blood Pressure [ 90/51 Supine] - Orders/Labs/Meds Orders: Active Orders 24 hr Category Date Time Status Orthostatic Vital Signs [RC] STAT Care 04/22/18 23:06 Active Orthostatic Vital Signs [RC] STAT Care 04/23/18 00:42 Active Head wo Cont [CT] Stat Exams 04/22/18 23:05 Taken Labs: Laboratory Tests 04/22/18 04/22/18 Range/Units 23:30 23:30 WBC 13.43 H (3.98-10.04) K/mm3 RBC 4.96 (3.98-5.22) M/mm3 Hgb 15.8 H (11.2-15.7) gm/L Hct 45.6 H (34.1-44.9) % MCV 91.9 (79.4-94.8) fl MCH 31.9 (25.6-32.2) pg MCHC 34.6 (32.2-35.5) g/dl RDW Std Deviation 42.7 (36.4-46.3) fL Plt Count 119 L (182-369) K/mm3 MPV 11.8 (9.4-12.3) fl Neutrophils % (Manual) 85 H (40-60) % Band Neutrophils % 0 (0-10) % Lymphocytes % (Manual) 9 L (20-40) % Atypical Lymphs % 1 % Monocytes % (Manual) 5 (2-10) % Eosinophils % (Manual) 0 L (0.7-5.8) % Basophils % (Manual) 0 L (0.1-1.2) Platelet Estimate Decreased Plt Morphology Comment Normal RBC Morph Comment Normal Sodium 142 (136-145) mEq/L Potassium 3.4 L (3.5-5.1) mEq/L Chloride 104 (98-107) mEq/L Carbon Dioxide 27 (21-32) mEq/L Anion Gap 14.4 (5-15) BUN 12 (7-18) mg/dL Creatinine 1.0 (0.55-1.02) mg/dL Est Cr Clr Drug Dosing TNP Estimated GFR (MDRD) > 60 (>60) mL/min BUN/Creatinine Ratio 12.0 L (14-18) Glucose 110 H (74-106) mg/dL Calcium 8.5 (8.5-10.1) mg/dL Total Bilirubin 0.8 (0.2-1.0) mg/dL AST 17 (15-37) U/L ALT 26 (14-59) U/L Alkaline Phosphatase 104 (46-116) U/L Total Protein 7.5 (6.4-8.2) g/dl Albumin 4.2 (3.4-5.0) g/dl Globulin 3.3 gm/dL Albumin/Globulin Ratio 1.3 (1-2) Meds: Medications Discontinued Medications Generic Name Dose Route Start Last Admin Trade Name Honey PRN Reason Stop Dose Admin Benztropine Mesylate 1 mg 04/22/18 23:06 04/22/18 23:55 Cogentin PO 04/22/18 23:07 1 mg ONETIME STA Administration Haloperidol Lactate 5 mg 04/22/18 23:06 04/22/18 23:34 Haldol IM 04/22/18 23:07 5 mg ONETIME ONE Administration Sodium Chloride 1,000 mls @ 999 mls/hr 04/22/18 23:06 04/22/18 23:34 Normal Saline IV 04/23/18 00:06 999 mls/hr ONETIME ONE Administration Ondansetron HCl 4 mg 04/22/18 23:06 04/22/18 23:34 Zofran IVPUSH 04/22/18 23:07 4 mg ONETIME ONE Administration - Re-Assessments/Exams Free Text/Narrative Re-Assessment/Exam: 04/22/18 23:36 The patient is orthostatic. A liter of IV fluid was already ordered. I will have the nurse recheck the orthostatics after the liter of fluid has infused. 04/23/18 00:25 Notified by Corina CAMPOS that she accidentally gave the 5 mg Haldol IV instead of IM. This is an extremely low IV dose, nevertheless, the patient subsequently reported that her headache has virtually resolved, strongly indicating that her headache was migrainous in etiology. 04/23/18 01:05 CT of the head without contrast is read by [facility] as "No acute findings." 04/23/18 01:44 Following 1 L of NS, the patient is no longer orthostatic. I will discharge her home with a prescription for Maxalt. A prescription for Zofran was offered, but declined. The patient requested a note for work. Departure - Departure Time of Disposition: 01:48 Disposition: Home, Self-Care 01 Condition: Good Clinical Impression: Migraine headache, Intravascular volume depletion - Discharge Information Prescriptions: Rizatriptan Benzoate [Rizatriptan] 1 tab PO Q2H PRN #3 tablet PRN Reason: Headache Instructions: Migraine Headache Referrals: Ada Mueller PA-C [Primary Care Provider] - Forms: ED Department Discharge, ED Return to Work/School Form Additional Instructions: You were seen in the emergency room for a weeklong headache with nausea and vomiting. Workup in the ER included blood work, positional blood pressure checks, and a CT scan of your head. Your blood work was unremarkable, and the CT scan of your head was normal. Your heart rate fady excessively between lying and standing initially, however, after you received 1 L of IV fluid, this normalized. This indicates that you were intravascularly dry. Get plenty of rest tonight in a dark, quiet place. Stay well hydrated. A note for work has been provided. A prescription for the anti-migraine medicine Maxalt (rizatriptan) has been sent to the [facility], [address] [place] [address], [address] from [facility]. Dissolve 1 tablet in your mouth at the earliest sign of a migraine headache. You may repeat after 2 hours, to a maximum of 3 tablets within a 24-hour period. If this medicine works well to treat your migraines, follow-up with your PCP, Ada Mueller, for an additional prescription. If any other problems, please do not hesitate to return to the ER. - My Orders Last 24 Hours: My Active Orders 04/22/18 23:05 Head wo Cont [CT] Stat 04/22/18 23:06 Orthostatic Vital Signs [RC] STAT 04/23/18 00:42 Orthostatic Vital Signs [RC] STAT - Assessment/Plan Last 24 Hours: My Active Orders 04/22/18 23:05 Head wo Cont [CT] Stat 04/22/18 23:06 Orthostatic Vital Signs [RC] STAT 04/23/18 00:42 Orthostatic Vital Signs [RC] STAT
--- NOTE | 2018-04-23 08:46 | CT ---
Head CT Technique: Multiple axial sections through the brain were obtained. Intravenous contrast was not utilized. Comparison: No prior intracranial imaging. Findings: Ventricles along with basal cisterns and sulci over the convexities are within normal limits for the patient's age. Well-defined low density area noted within the medial right temporal lobe measuring about 1.0 cm in size. This appears to represent a small cystic structure and is felt to be benign. No other abnormal parenchymal densities are seen. No evidence of intracranial hemorrhage. No midline shift or mass effect is seen. Bone window settings were reviewed which show visualized sinuses to appear clear. No acute calvarial abnormality is seen. Impression: 1. 1 cm cystic area within the approximate medial right temporal region. This is believed to be benign and most likely represents a large Virchow Eduardo perivascular space. 2. Nothing acute is seen on noncontrast head CT study. Diagnostic code #2 I agree with preliminary report issued by [facility] ([facility] preliminary report dictated on 04/23/18, 1:44 AM Central Time)
== END 2018-04-23 02:15 | disposition home or self-care (01) ==
LOC: JD.ED 21:39
DX: G43.909 Migraine, unspecified, not intractable, without status migrainosus (principal); E86.9 Volume depletion, unspecified; E03.9 Hypothyroidism, unspecified; Z79.899 Other long term (current) drug therapy
CPT/HCPCS: 36415; 70450; 80053; 85007; 85027; 96361; 96374; 96375; 99284; A9270; J1630; J2405; J7040

== ENCOUNTER 2019-04-05 22:11 | Emergency (ER) | payer MEDICAID, OTHER ==
[2019-04-05 22:20] VITALS: BP 127/89
[2019-04-05] MEDS ORDERED: Ondansetron 4 MG Tab.DIS PO ONE (22:44)
--- NOTE | 2019-04-05 22:46 | EDM.PDOC ---
ED HPI GENERAL MEDICAL PROBLEM - General Chief Complaint: Gastrointestinal Problem Stated Complaint: VOMITING/DIZZY/ILL FEELING Time Seen by Provider: 04/05/19 22:31 Source of Information: Reports: Patient, RN Notes Reviewed History Limitations: Reports: No Limitations - History of Present Illness INITIAL COMMENTS - FREE TEXT/NARRATIVE: The patient states that she developed nausea, vomiting, and lightheadedness when upright, around 13:00 this afternoon. No constipation or diarrhea. No recent abdominal pain. No recent fever. No urinary symptoms. No chest discomfort , dyspnea, or palpitations. The patient denies eating any bad tasting or smelling food recently. No similarly ill close contacts. No recent antibiotics. No recent travel. The patient states that she had similar symptoms a few months ago, but that such symptoms are rare. The patient did not take any home medications prior to coming to the ED. The patient's PCP is CHRIS Recinos. Her [employer] is Dr. Loltia Hayden. 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), Other (See Below) (Ovarian cysts) Psychiatric History: Reports: Anxiety, Depression Endocrine/Metabolic History: Reports: Hypothyroidism - Past Surgical History HEENT Surgical History: Reports: Eye Surgery (Bilateral strabismus repair) GI Surgical History: Reports: Cholecystectomy (2010) Female Surgical History: Reports: D&C (x 1) Musculoskeletal Surgical History: Reports: Ganglion Cyst (bilateral wrists) Oncologic Surgical History: Reports: Biopsy of Breast Social & Family History - Family History Family Medical History: Noncontributory - Tobacco Use Smoking Status *Q: Never Smoker - Caffeine Use Caffeine Use: Reports: Soda - Alcohol Use Alcohol Use History: No - Recreational Drug Use Recreational Drug Use: No - Living Situation & Occupation Living situation: Reports: , Other (with a friend) 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 ED EXAM, GI/ABD - Physical Exam Exam: See Below Exam Limited By: No Limitations General Appearance: Alert, WD/WN, No Apparent Distress Eyes: Bilateral: Normal Appearance, EOMI Ears: Normal External Exam, Hearing Grossly Normal Nose: Normal Inspection Throat/Mouth: Normal Inspection, Normal Lips, Normal Voice, No Airway Compromise Head: Atraumatic, Normocephalic Neck: Normal Inspection, Full Range of Motion Respiratory/Chest: No Respiratory Distress, Lungs Clear, Normal Breath Sounds, No Accessory Muscle Use Cardiovascular: Normal Peripheral Pulses, Regular Rate, Rhythm, No Edema, No Gallop, No JVD, No Murmur, No Rub GI/Abdominal Exam: Normal Bowel Sounds, Soft, Non-Tender, No Organomegaly, No Distention, No Abnormal Bruit, No Mass (Female) Exam: Deferred Rectal (Female) Exam: Deferred Back Exam: Normal Inspection, Full Range of Motion, NT Extremities: Normal Inspection, Normal Range of Motion, No Pedal Edema, Normal Capillary Refill Neurological: Alert, Oriented, Normal Cognition, No Motor/Sensory Deficits Psychiatric: Normal Affect Skin Exam: Warm, Dry, Intact, Normal Color, No Rash Course - Vital Signs Last Recorded V/S: Last Vital Signs Temp 36.7 C 04/05/19 22:17 Pulse 68 04/05/19 22:17 Resp 16 04/05/19 22:17 BP 127/89 04/05/19 22:17 Pulse Ox 98 04/05/19 22:17 Orthostatic Blood Pressure [ 129/72 Standing] Orthostatic Blood Pressure [ 122/86 Sitting] Orthostatic Blood Pressure [ 113/76 Supine] - Orders/Labs/Meds Meds: Medications Discontinued Medications Generic Name Dose Route Start Last Admin Trade Name Freq PRN Reason Stop Dose Admin Ondansetron HCl 4 mg 04/05/19 22:44 04/05/19 23:00 Zofran Odt PO 04/05/19 22:45 4 mg ONETIME ONE Administration - Re-Assessments/Exams Free Text/Narrative Re-Assessment/Exam: 04/05/19 22:45 Because the patient reports lightheadedness, especially when upright, I have ordered orthostatics, but unless positive, I don't feel the need for blood work or an IV, since she has not had any diarrhea, and it is unlikely that she would have developed any significant fluid or electrolyte shifts with vomiting alone for under 9 hours. On the other hand, if she is orthostatic, I will have the nurse place an IV, draw some blood, and start IV fluid. Since the patient has not had any diarrhea, Imodium is not indicated at this time. I have ordered oral Zofran, and can prescribe more. 04/06/19 00:09 Notified that the patient is feeling much better following oral Zofran. The patient is not orthostatic. 04/06/19 00:12 Test results discussed with the patient and her friend. I will discharge the patient home with a prescription for Zofran, and recommend that she stay well hydrated with Gatorade or Powerade, and eat bland foods, such as rice, oatmeal, chicken noodle soup with saltines, etc. If she develops diarrhea, I would like her to take [id number] loperamide, and in that case, she should avoid juice and milk. Departure - Departure Time of Disposition: 00:13 Disposition: Home, Self-Care 01 Condition: Good Clinical Impression: Nausea & vomiting - Discharge Information *PRESCRIPTION DRUG MONITORING PROGRAM REVIEWED*: Not Applicable *COPY OF PRESCRIPTION DRUG MONITORING REPORT IN PATIENT KRISH: Not Applicable Prescriptions: Ondansetron [Zofran ODT] 1 tab PO Q8H PRN #10 tab.dis PRN Reason: Nausea/Vomiting Instructions: Nausea and Vomiting, Adult, [id number] Referrals: Ada Mueller PA-C [Primary Care Provider] - Lolita Hayden MD [Physician] - Forms: ED Department Discharge Additional Instructions: You were seen in the emergency room for nausea and vomiting, along with feeling dizzy, especially when upright. Workup in the ER included positional blood pressure checks, which returned normal. You are not significantly intravascularly depleted. Your nausea improved following a dose of the anti-nausea medicine Zofran. A prescription for Zofran has been sent to the [facility], located just south and across the street from [facility]. They will be open between noon and 4:00 this afternoon. Dissolve one tablet of Zofran on your tongue up to every 8 hours, as needed for nausea/vomiting. If you develop diarrhea, we recommend that you take [id number] loperamide (Imodium AD) as directed on the label. Stay adequately hydrated. Gatorade or Powerade are best, but, so long as you do not have diarrhea, any fluid will do. If you do develop diarrhea, avoid juice and milk, as they may make your diarrhea worse. Eat a bland diet, such as rice, oatmeal, bananas, and chicken noodle soup with saltines crackers. Follow-up with your PCP, CHRIS Recinos, as needed. If any other problems, please do not hesitate to return to the ER.
== END 2019-04-06 00:23 | disposition home or self-care (01) ==
LOC: JD.ED 22:11
DX: R11.2 Nausea with vomiting, unspecified (principal); R42 Dizziness and giddiness; E03.9 Hypothyroidism, unspecified; F41.9 Anxiety disorder, unspecified; F32.9 Major depressive disorder, single episode, unspecified; Z90.49 Acquired absence of other specified parts of digestive tract
CPT/HCPCS: 99283; A9270

== ENCOUNTER 2019-08-13 02:00 | Emergency (ER) | payer SELFPAY ==
[2019-08-13 02:21] VITALS: BP 133/81; PULSE 65
--- NOTE | 2019-08-13 02:38 | EDM.PDOC ---
ED HPI GENERAL MEDICAL PROBLEM - General Chief Complaint: Respiratory Problem Stated Complaint: COUGH CONGESTION SOB Time Seen by Provider: 08/13/19 02:22 Source of Information: Reports: Patient, Significant Other (Boyfriend) History Limitations: Reports: No Limitations - History of Present Illness INITIAL COMMENTS - FREE TEXT/NARRATIVE: Ms. Alamo is a pleasant 34-year-old woman with no significant past medical history, who states that she has been experiencing a dry cough for about a week. She has had nausea when she coughs hard, but no emesis. She denies dyspnea at rest, but reports dyspnea on exertion. No wheezing. She denies nasal or sinus congestion or pressure. She states that she had a sore throat about a week ago, but it resolved. No recent constipation, diarrhea, or urinary symptoms. The patient states that she has had similar symptoms twice in the past, but did not seek medical attention either time. The patient states that she has taken an jtoo-drs-iymuigo cold and flu medicine , a multivitamin, and essential oils, all to no effect. She has a humidifier in her bedroom. The patient has never smoked. The patient's PCP is CHRIS Recinos. Her Message Broker Developer is Dr. Lolita Hayden. She has not received an influenza vaccine this season. 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 (x 4), Other (See Below) (Ovarian cysts) Psychiatric History: Reports: Anxiety, Depression Endocrine/Metabolic History: Reports: Hypothyroidism - Past Surgical History HEENT Surgical History: Reports: Eye Surgery (bilateral strabizmus correction) GI Surgical History: Reports: Cholecystectomy (2011) Female Surgical History: Reports: D&C (x 1) Musculoskeletal Surgical History: Reports: Ganglion Cyst (bilateral wrists) Oncologic Surgical History: Reports: Biopsy of Breast Social & Family History - Family History Family Medical History: Noncontributory - Tobacco Use Smoking Status *Q: Never Smoker - Caffeine Use Caffeine Use: Reports: Soda - Alcohol Use Alcohol Use History: No - Recreational Drug Use Recreational Drug Use: No - Living Situation & Occupation Living situation: Reports: , Other (with a friend) Occupation: Employed ([employer]) ED ROS GENERAL - Review of Systems Review Of Systems: ROS reveals no pertinent complaints other than HPI. ED EXAM, GENERAL - Physical Exam Exam: See Below Exam Limited By: No Limitations General Appearance: Alert, WD/WN, No Apparent Distress Eye Exam: Bilateral Eye: EOMI, Normal Inspection Ears: Normal External Exam, Normal Canal, Hearing Grossly Normal, Normal TMs Nose: Normal Inspection, Normal Mucosa, No Blood Throat/Mouth: Normal Inspection, Normal Lips, Normal Teeth, Normal Gums, Normal Oropharynx, Normal Voice, No Airway Compromise Head: Atraumatic, Normocephalic Neck: Normal Inspection, Supple, Non-Tender, Full Range of Motion. No: Lymphadenopathy (L), Lymphadenopathy (R) Respiratory/Chest: No Respiratory Distress, Lungs Clear, Normal Breath Sounds, No Accessory Muscle Use. No: Decreased Breath Sounds, Crackles, Rhonchi, Wheezing, Stridor, Prolonged Expiration Cardiovascular: Normal Peripheral Pulses, Regular Rate, Rhythm, No Edema, No Gallop, No JVD, No Murmur, No Rub Peripheral Pulses: 4+: Radial (L), Radial (R) GI/Abdominal: Normal Bowel Sounds, Soft, Non-Tender, No Organomegaly, No Distention, No Abnormal Bruit, No Mass (Female) Exam: Deferred Rectal (Female) Exam: Deferred Back Exam: Normal Inspection, Full Range of Motion, NT Extremities: Normal Inspection, Normal Range of Motion, No Pedal Edema, Normal Capillary Refill Neurological: Alert, Oriented, Normal Cognition, No Motor/Sensory Deficits Psychiatric: Normal Affect Skin Exam: Warm, Dry, Intact, Normal Color, No Rash Course - Vital Signs Last Recorded V/S: Last Vital Signs Temp 36.3 C 08/13/19 02:18 Pulse 65 10/16/19 02:18 Resp 16 08/13/19 02:18 BP 133/81 08/13/19 02:18 Pulse Ox 97 08/13/19 02:18 - Orders/Labs/Meds Labs: Laboratory Tests 08/13/19 Range/Units 04:14 D-Dimer, Quantitative < 0.19 L (0.19-0.50) mg/L Meds: Medications Discontinued Medications Generic Name Dose Route Start Last Admin Trade Name Honey PRN Reason Stop Dose Admin Influenza Virus Vaccine 60 mcg 08/13/19 02:45 08/13/19 03:01 Fluzone Quad [id number] Syringe IM 08/13/19 02:46 60 mcg .ONCE ONE Administration - Re-Assessments/Exams Free Text/Narrative Re-Assessment/Exam: 08/13/19 02:36 The patient's physical exam is completely benign, including that of her lungs, which are entirely clear to auscultation bilaterally. I have ordered a chest x- ray and an influenza swab, but unless her chest x-ray is abnormal, I don't see the need for blood work, since she reports no history of fever, and her oxygen saturation is normal on room air. 08/13/19 03:45 2-view chest radiograph appears to be grossly normal. The cardiac silhouette is within normal limits. No pulmonary vascular congestion. No pleural effusions. No focal infiltrate. No pneumothorax. Formal read per the Radiologist pending. The patient's influenza swab returned negative. 08/13/19 04:01 Test results discussed with the patient and her boyfriend. The cause of the patient's cough is unclear, but is likely viral in etiology. I advised against nsst-goi-riquwfu cough and cold remedies, as they have been shown to be of no benefit. Her cough will likely resolve on its own soon. The patient received an influenza vaccine during this ED visit. 08/13/19 04:05 Preparing the patient's discharge instructions, I see that she has a Mirena IUD , which slightly increases her risk for a DVT/PE. Since the patient reported some dyspnea on exertion, think it is worthwhile to rule out a PE. The patient has agreed to check a D-dimer. 08/13/19 04:48 The patient's D-dimer has returned undetectably low. I will discharge her home as above. Departure - Departure Time of Disposition: 04:48 Disposition: Home, Self-Care 01 Condition: Good Clinical Impression: Cough - Discharge Information *PRESCRIPTION DRUG MONITORING PROGRAM REVIEWED*: Not Applicable *COPY OF PRESCRIPTION DRUG MONITORING REPORT IN PATIENT KRISH: Not Applicable Instructions: Cough, Adult, [id number] Referrals: Ada Mueller PA-C [Ordering Only Provider] - Lolita Hayden MD [Physician] - Forms: ED Department Discharge Additional Instructions: You were seen in the emergency room for a dry cough for about one week. Workup in the ER included a blood test for a blood clot in your lungs, an influenza swab, and a chest x-ray. Your entire workup was unremarkable. You do not have a blood clot in your lungs , you do not have influenza, and your chest x-ray was completely normal. The cause of your cough is unknown, but is likely due to a viral illness. As discussed, there are no treatments for a viral illness - it will have to run its course. As discussed, we do not recommend that you take any pypg-fgl-faqppyw cough and cold remedies, as they have been shown to be of no benefit, but do have side effects. Follow-up with your PCP, CHRIS Recinos, as needed. If any other problems, please do not hesitate to return to the ER.
[2019-08-13] MEDS ORDERED: FLU Vacc QS2019-20(6MOS+)/PF 60 MCG/0.5 ML SYRINGE IM ONE (02:45)
--- NOTE | 2019-08-13 08:24 | CR ---
Chest: Two views of the chest were obtained. Comparison: Prior chest x-ray of 11/01/17. Heart size and mediastinum are normal. Lungs are clear. Bony structures are within normal limits. Surgical clips are seen from prior cholecystectomy. Impression: 1. Nothing acute is appreciated on two-view chest x-ray. Diagnostic code #2
== END 2019-08-13 04:57 | disposition home or self-care (01) ==
LOC: JD.ED 02:00
DX: R05 Cough (principal); F41.9 Anxiety disorder, unspecified; F32.9 Major depressive disorder, single episode, unspecified; E03.9 Hypothyroidism, unspecified; Z79.899 Other long term (current) drug therapy; Z23 Encounter for immunization
CPT/HCPCS: 36415; 71046; 71046-26; 85379; 87804; 90686; 99283-25; G0008

== ENCOUNTER 2019-11-05 00:21 | Emergency (ER) | payer SELFPAY ==
[2019-11-05 00:33] VITALS: BP 120/83; PULSE 70
--- NOTE | 2019-11-05 00:47 | EDM.PDOC ---
ED HPI GENERAL MEDICAL PROBLEM - General Chief Complaint: Respiratory Problem Stated Complaint: SOB/COUGHING UP BLOOD Time Seen by Provider: 11/05/19 00:31 Source of Information: Reports: Patient, Other (Boyfriend) History Limitations: Reports: No Limitations - History of Present Illness INITIAL COMMENTS - FREE TEXT/NARRATIVE: Ms. Aden is a pleasant 34-year-old woman with no significant past medical history, who states that she has had a dry cough, nasal congestion, rhinorrhea, and dyspnea for the past 2 days. She then developed some flecks of blood when she coughed, along with some post-tussive emesis, tonight. No recent fever. No recent constipation or diarrhea. She denies having a sore throat, although she does state that she has slight bilateral ear pain. Other than drinking tea and taking vitamins, which have not helped her symptoms , the patient denies taking any zhxd-dxg-thwcvnb medications to treat her symptoms. The patient's PCP is CHRIS Recinos. Her Sexologist is Dr. Lolita Hayden. She received an influenza vaccine on 08/13/2019. 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: Spontaneous (x 4), Other (See Below) (Ovarian cysts) Psychiatric History: Reports: Anxiety, Depression Endocrine/Metabolic History: Reports: Hypothyroidism - Past Surgical History HEENT Surgical History: Reports: Eye Surgery (bilateral strabizmus correction), Oral Surgery (wisdom teeth extraction) GI Surgical History: Reports: Cholecystectomy (2010) Female Surgical History: Reports: D&C (x 1) Musculoskeletal Surgical History: Reports: Ganglion Cyst (bilateral wrists) Oncologic Surgical History: Reports: Biopsy of Breast (left - benign) Social & Family History - Family History Family Medical History: Noncontributory - Tobacco Use Smoking Status *Q: Current Some Day Smoker - Caffeine Use Caffeine Use: Reports: Soda - Alcohol Use Alcohol Use History: Yes Alcohol Use Frequency: Rarely - Recreational Drug Use Recreational Drug Use: No - Living Situation & Occupation Living situation: Reports: , Other (with a roomate) Occupation: Employed ([employer]) ED ROS GENERAL - Review of Systems Review Of Systems: Comprehensive ROS is negative, except as noted in HPI. ED EXAM, GENERAL - Physical Exam Exam: See Below Exam Limited By: No Limitations General Appearance: Alert, WD/WN, No Apparent Distress Eye Exam: Bilateral Eye: EOMI, Normal Inspection Ears: Normal External Exam, Normal Canal, Hearing Grossly Normal, Normal TMs Nose: Normal Inspection, No Blood, Other (Bilateral nasal mucosa edema) Throat/Mouth: Normal Inspection, Normal Lips, Normal Teeth, Normal Gums, Normal Oropharynx, Normal Voice, No Airway Compromise Head: Atraumatic, Normocephalic Neck: Normal Inspection, Supple, Non-Tender, Full Range of Motion. No: Lymphadenopathy (L), Lymphadenopathy (R) Respiratory/Chest: No Respiratory Distress, Lungs Clear, Normal Breath Sounds, No Accessory Muscle Use. No: Decreased Breath Sounds, Crackles, Rhonchi, Wheezing, Stridor, Prolonged Expiration Cardiovascular: Normal Peripheral Pulses, Regular Rate, Rhythm, No Edema, No Gallop, No JVD, No Murmur, No Rub Peripheral Pulses: 4+: Radial (L), Radial (R) GI/Abdominal: Normal Bowel Sounds, Soft, Non-Tender, No Organomegaly, No Distention, No Abnormal Bruit, No Mass (Female) Exam: Deferred Rectal (Female) Exam: Deferred Back Exam: Normal Inspection, Full Range of Motion, NT Extremities: Normal Inspection, Normal Range of Motion, No Pedal Edema, Normal Capillary Refill Neurological: Alert, Oriented, Normal Cognition, No Motor/Sensory Deficits Psychiatric: Normal Affect Skin Exam: Warm, Dry, Intact, Normal Color, No Rash Course - Vital Signs Last Recorded V/S: Last Vital Signs Temp 36.4 C 11/05/19 00:29 Pulse 70 11/05/19 00:29 Resp 16 11/05/19 00:29 BP 120/83 11/05/19 00:29 Pulse Ox 97 11/05/19 00:29 - Re-Assessments/Exams Free Text/Narrative Re-Assessment/Exam: 11/05/19 00:44 The patient is likely suffering from a viral URI, although it is possible that she is suffering from influenza. I have ordered an influenza swab, but I do not see an indication for any other tests, including a chest x-ray or blood work, as the patient's vital signs are completely normal, including an oxygen saturation of 97%, there is no history of fever, and her physical exam, other than bilateral nasal mucosa edema, is completely benign. 11/05/19 01:17 The patient's influenza swab has returned positive for influenza B. 11/05/19 01:23 Test results discussed with the patient and her boyfriend. As above, the patient is suffering from influenza B. Because her symptoms have been going on for 2 days, I explained that it is unlikely that Tamiflu would be of much benefit, but I offered to start her on it if she chose. She declined. I will write her a note for work. Departure - Departure Time of Disposition: 01:24 Disposition: Home, Self-Care 01 Condition: Good Clinical Impression: Influenza B - Discharge Information *PRESCRIPTION DRUG MONITORING PROGRAM REVIEWED*: Not Applicable *COPY OF PRESCRIPTION DRUG MONITORING REPORT IN PATIENT KRISH: Not Applicable Referrals: Ada Mueller PA-C [Primary Care Provider] - Lolita Hayden MD [Physician] - Forms: ED Department Discharge, ED Return to Work/School Form Additional Instructions: You were seen in the emergency room for 2 days of a cough, nasal congestion, runny nose, and shortness of breath, with flecks of blood when you cough, and vomiting tonight. Workup in the ER included an influenza swab, which returned positive for influenza B. Unfortunately, it is too late free to take the anti-influenza medicine Tamiflu. Your illness will have to run its course. You may take ieou-liz-olznuss Tylenol or ibuprofen as needed for discomfort. You may try nasal decongestant sprays or nasal saline to keep your nasal passages open. Chloraseptic or warm salt water gargles may help with a sore throat. Stay adequately hydrated. We recommend that you not take any njsh-bar-zgsdavw cough or cold remedies, as they have been shown to be of no benefit. A note for work has been provided to you. If any other problems, please do not hesitate to return to the ER. Sepsis Event Note - Evaluation Sepsis Screening Result: No Definite Risk - Focused Exam Vital Signs: Vital Signs Temp Pulse Resp BP Pulse Ox 11/05/19 00:29 36.4 C 70 16 120/83 97 Date Exam was Performed: 11/05/19 Time Exam was Performed: 01:29
== END 2019-11-05 01:36 | disposition home or self-care (01) ==
LOC: JD.ED 00:21
DX: J10.1 Influenza due to other identified influenza virus with other respiratory manifestations (principal); E03.9 Hypothyroidism, unspecified; F32.9 Major depressive disorder, single episode, unspecified; F17.200 Nicotine dependence, unspecified, uncomplicated; Z79.890 Hormone replacement therapy; Z79.899 Other long term (current) drug therapy
CPT/HCPCS: 87804; 99282; 99284

== ENCOUNTER 2020-09-17 22:11 | Emergency (ER) | payer MEDICAID ==
[2020-09-17 22:20] VITALS: BP 118/76; PULSE 68
--- NOTE | 2020-09-17 22:35 | EDM.PDOC ---
ED HPI GENERAL MEDICAL PROBLEM - General Chief Complaint: Abdominal Pain Stated Complaint: side pains Time Seen by Provider: 09/17/20 22:13 Source of Information: Reports: Patient History Limitations: Reports: No Limitations - History of Present Illness INITIAL COMMENTS - FREE TEXT/NARRATIVE: This is a 35-year-old female. This evening while at home she had a sudden sharp pain in her left side down into her left lower quadrant. This happened several times but has not been consistent. She has had no nausea or vomiting. She comes to the ER because of this pain and she has a history of kidney stones in the past and she feels like she might have a kidney stone now. She denies any urinary symptoms. She denies being . She does have a Covid test pending because she has been having a stomachache and she is feeling fatigued. She denies any fever or chills she denies any diarrhea she has had no cough no shortness of breath no myalgias no congestion no headache. Left Abdominal Pain Score (Numeric/FACES): 8 - Related Data Allergies Allergy/AdvReac Type Severity Reaction Status Date / Time No Known Allergies Allergy Verified 09/17/20 22:21 Home Meds: Home Meds Levothyroxine [Synthroid] 100 mcg PO DAILY 12/23/14 [History] Levonorgestrel [Mirena] 1 each IY ASDIRECTED 09/05/17 [History] DULoxetine [Cymbalta] 20 mg PO DAILY 04/22/18 [History] Hydrocodone/Acetaminophen [Hydrocodone-Acetamin 5-325 mg] 1 - 2 each PO Q6H PRN #15 tablet 09/17/20 [Rx] Ondansetron [Zofran] 4 mg PO Q6H #15 tab 09/17/20 [Rx] Past Medical History HEENT History: Reports: Impaired Vision Other HEENT History: wears corrective lenses Genitourinary History: Reports: Renal Calculus 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: Spontaneous , Other (See Below) Other SENIOR COMPENSATION CONSULTANT History: 3 miscarriages; cysts Psychiatric History: Reports: Anxiety, Depression Endocrine/Metabolic History: Reports: Hypothyroidism Other Oncologic History: waiting for results on breast cancer-breast biopsy completed - Past Surgical History HEENT Surgical History: Reports: Eye Surgery, Oral Surgery Other HEENT Surgeries/Procedures: vonf-gzsujct-bwomv eyed GI Surgical History: Reports: Cholecystectomy Female Surgical History: Reports: D&C Musculoskeletal Surgical History: Reports: Ganglion Cyst Other Musculoskeletal Surgeries/Procedures:: left and right wrist surgery Oncologic Surgical History: Reports: Biopsy of Breast Social & Family History - Family History Family Medical History: No Pertinent Family History - Tobacco Use Tobacco Use Status *Q: Current Every Day Tobacco User Years of Tobacco use: 1 Packs/Tins Daily: 0.2 - Caffeine Use Caffeine Use: Reports: Soda - Recreational Drug Use Recreational Drug Use: No - Living Situation & Occupation Living situation: Reports: , Other (with a roomate) Occupation: Employed ([employer] ED ROS GENERAL - Review of Systems Review Of Systems: See Below Constitutional: Reports: Fatigue. Denies: Fever, Chills HEENT: Reports: No Symptoms Respiratory: Denies: Shortness of Breath, Cough Cardiovascular: Reports: No Symptoms Endocrine: Reports: No Symptoms GI/Abdominal: Reports: Abdominal Pain. Denies: Diarrhea, Nausea, Vomiting : Reports: Flank Pain. Denies: Discharge, Dysuria Musculoskeletal: Reports: No Symptoms Skin: Reports: No Symptoms Neurological: Reports: No Symptoms Psychiatric: Reports: No Symptoms Hematologic/Lymphatic: Reports: No Symptoms ED EXAM, RENAL/ - Physical Exam Exam: See Below Exam Limited By: No Limitations General Appearance: Alert, WD/WN, No Apparent Distress Eye Exam: Bilateral Eye: Normal Inspection Ears: Normal External Exam Throat/Mouth: Normal Voice, No Airway Compromise, Other (She denies any sore throat or difficulty in breathing) Head: Normocephalic Neck: Supple Respiratory/Chest: No Respiratory Distress, Lungs Clear, Normal Breath Sounds Cardiovascular: Regular Rate, Rhythm, No Murmur GI/Abdominal: Soft, Non-Tender Back Exam: Normal Inspection, Full Range of Motion, Other (She has minimal left CVA tenderness. Palpation of her left rib seems to cause discomfort though she denies any trauma to the ribs. It seems to be that the pain starts in her left lateral ribs and goes down her flank into her left lower quadrant. She has no CVA tenderness on the right. She is in no distress sitting comfortably in the bed and presently is not having any left flank pain.) Extremities: Normal Inspection, Normal Range of Motion Neurological: Alert, Oriented Psychiatric: Normal Affect, Normal Mood Skin Exam: Warm, Dry Course - Vital Signs Last Recorded V/S: Last Vital Signs Temp 97.9 F 09/17/20 22:19 Pulse 68 09/17/20 22:19 Resp 15 09/17/20 22:19 BP 118/76 09/17/20 22:19 Pulse Ox 100 09/17/20 22:19 - Orders/Labs/Meds Labs: Laboratory Tests 09/17/20 Range/Units 22:40 Urine Color Yellow (Yellow) Urine Appearance Clear (Clear) Urine pH 6.0 (5.0-8.0) Ur Specific [place] > or = 1.030 (1.005-1.030) Urine Protein Negative (Negative) Urine Glucose (UA) Negative (Negative) Urine Ketones Negative (Negative) Urine Occult Blood Trace-intact H (Negative) Urine Nitrite Negative (Negative) Urine Bilirubin Negative (Negative) Urine Urobilinogen 0.2 (0.2-1.0) Ur Leukocyte Esterase 1+ H (Negative) Urine RBC 0-5 (0-5) /hpf Urine WBC 5-10 H (0-5) /hpf Ur Squamous Epith Cells 0-5 (0-5) /hpf Urine Bacteria Few (FEW) /hpf Urine Mucus Few (FEW) /hpf - Re-Assessments/Exams Free Text/Narrative Re-Assessment/Exam: 09/17/20 23:26 Spoke to the patient regarding the urine. She does not have excessive amount of RBCs and only trace occult blood. So she could still have a stone though it is not moving particularly. I offered to do a CT scan on her but she has refused due to the excess radiation. I will give her a urine strainer to take home and put her on something for pain and nausea and if he gets markedly worse she just needs to return to the ER. The patient states she understands. Departure - Departure Time of Disposition: 23:27 Disposition: Home, Self-Care 01 Condition: Good Clinical Impression: Left flank pain, History of kidney stones - Discharge Information *PRESCRIPTION DRUG MONITORING PROGRAM REVIEWED*: Yes *COPY OF PRESCRIPTION DRUG MONITORING REPORT IN PATIENT KRISH: No Prescriptions: Hydrocodone/Acetaminophen [Hydrocodone-Acetamin 5-325 mg] 1 - 2 each PO Q6H PRN #15 tablet PRN Reason: Pain Ondansetron [Zofran] 4 mg PO Q6H #15 tab Instructions: Flank Pain, Adult, Qqhp-wi-Mebr Referrals: Ada Mueller PA-C [Primary Care Provider] - Forms: ED Department Discharge Additional Instructions: You are seen in the ER for left flank pain, with your history of kidney stones it is possible you are passing a kidney stone again, your urine did not suggest an active passing stone but sometimes that is not completely accurate, I offered a CT scan but at this time due to radiation exposure you opted not to have a CT scan, I will provide some medication for nausea and pain at home and a urine strainer to strain your urine over the next couple of days. If the pain worsens markedly and the medicine is not helping return to the ER and we will provide additional medication as well as do a CT scan at that time. Follow-up with your doctor once you your Covid test results and are out of quarantine so they can recheck you. Sepsis Event Note (ED) - Evaluation Sepsis Screening Result: No Definite Risk - Focused Exam Vital Signs: Vital Signs Temp Pulse Resp BP Pulse Ox 09/17/20 22:19 97.9 F 68 15 118/76 100
== END 2020-09-17 23:42 | disposition home or self-care (01) ==
LOC: JD.ED 22:11
DX: R10.32 Left lower quadrant pain (principal); F41.9 Anxiety disorder, unspecified; F32.9 Major depressive disorder, single episode, unspecified; E03.9 Hypothyroidism, unspecified; F17.210 Nicotine dependence, cigarettes, uncomplicated; Z87.442 Personal history of urinary calculi; Z79.899 Other long term (current) drug therapy
CPT/HCPCS: 81001; 99283; 99284

== ENCOUNTER 2022-01-25 13:42 | Emergency (ER) | payer BC, MEDICAID ==
[2022-01-25 14:25] VITALS: BP 122/71; PULSE 90
[2022-01-25] MEDS ORDERED: Ondansetron 4 MG/2 ML SDV IVPUSH ONE (14:31)
[2022-01-25] MEDS ORDERED: Sodium Chloride 0.9% 10 ML Syringe FLUSH PRN (14:31)
== END 2022-01-25 16:41 | disposition home or self-care (01) ==
LOC: JD.ED 13:42
DX: N93.8 Other specified abnormal uterine and vaginal bleeding (principal); E03.9 Hypothyroidism, unspecified; Z79.899 Other long term (current) drug therapy
CPT/HCPCS: 36415; 80053; 85025; 86850; 86900; 86901; 96374; 99284; A9270; J2405; 99283

== ENCOUNTER 2024-06-10 08:00 | Emergency (ER) | payer BC ==
[2024-06-10 08:14] VITALS: PULSE 74
[2024-06-10 09:00] LABS: BASOPHILS ABSOLUTE AUTO 0.1 K/mm3 (0.0-0.2); BASOPHILS PERCENT AUTO 1.1 % (0.0-1.0); EOSINOPHILS ABSOLUTE AUTO 0.6 K/mm3 (0.0-0.4); EOSINOPHILS PERCENT AUTO 4.5 % (0.0-6.0); HEMATOCRIT 42.5 % (37.0-47.0); HEMOGLOBIN 14.5 gm/dl (12.0-16.0); IMMATURE GRAN ABSOLUTE AUTO 0.08 K/mm3 (0.00-0.05); IMMATURE GRAN PERCENT AUTO 0.6 % (0.0-0.4); LYMPHOCYTES ABSOLUTE AUTO 2.5 K/mm3 (1.0-4.8); LYMPHOCYTES PERCENT AUTO 19.6 % (24.0-44.0); MEAN CORPUSCULAR HEMOGLOBIN 32.5 pg (28.0-32.0); MEAN CORPUSCULAR HGB CONC 34.1 g/dl (32.0-36.0); MEAN CORPUSCULAR VOLUME 95.3 fl (83.0-99.0); MEAN PLATELET VOLUME 11.6 fl (9.4-12.3); MONOCYTES ABSOLUTE AUTO 0.6 K/mm3 (0.0-0.8); MONOCYTES PERCENT AUTO 5.1 % (0.0-8.0); NEUTROPHILS ABSOLUTE AUTO 8.7 K/mm3 (1.8-7.7); NEUTROPHILS PERCENT AUTO 69.1 % (41.0-71.0); PLATELET COUNT,PLT 170 K/mm3 (150-400); RED BLOOD CELL COUNT 4.46 M/mm3 (4.10-5.30)
[2024-06-10 10:36] VITALS: BP 124/72
== END 2024-06-10 10:36 | disposition home or self-care (01) ==
LOC: JD.ED 08:00
DX: O20.9 Hemorrhage in early pregnancy, unspecified (principal); O41.8X10 Other specified disorders of amniotic fluid and membranes, first trimester, not applicable or unspecified; Z3A.01 Less than 8 weeks gestation of pregnancy; E03.9 Hypothyroidism, unspecified; Z90.49 Acquired absence of other specified parts of digestive tract; Z86.16 Personal history of COVID-19; Z79.4 Long term (current) use of insulin; Z79.899 Other long term (current) drug therapy; Z88.8 Allergy status to other drugs, medicaments and biological substances
CPT/HCPCS: 36415; 76817; 76817-26; 84702; 85025; 86900; 86901; 99283; 99284